=== PATIENT | female | born 1985 | race Caucasian/White ===

== ENCOUNTER 2019-04-25 20:01 | Emergency (ER) | payer SELFPAY ==
[~2019-04-25] VITALS: Ht 162.6 cm; Wt 63.0 kg
[2019-04-25 20:03] VITALS: BP 151/91; PULSE 72; RESP 18; Ht 162.6 cm; Wt 63.0 kg
[2019-04-25] MEDS ORDERED: METOCLOPRAMIDE 10 MG INJ IV STA (20:37)
[2019-04-25] MEDS ORDERED: SOD CHLORIDE 0.9% 1,000 ML IV STA (20:37)
[2019-04-25] MEDS ORDERED: METO10TA92 PO (21:25)
--- NOTE | 2019-04-25 21:28 | ERD ---
ER Documentation Chief Complaint Chief Complaint VOMITING X'S 4 DAYS HPI 34-year-old female presents with vomiting over the last 4 days. She is approximately 1 week or less with her menstrual periods although she did have 2 last month. She denies fevers, abdominal pain, vaginal bleeding. Denies urinary complaints. ROS All systems reviewed and are negative except as per history of present illness. Medications Home Meds Active Scripts Metoclopramide* (Reglan*) 10 Mg Tablet, 10 MG PO Q6 PRN for NAUSEA AND/OR VOMITING, #20 TAB Prov:NORBERT JARVIS MD 04/25/19 Allergies Allergies: Coded Allergies: No Known Allergies (Verified Allergy, Unknown, 12/25/07) PMhx/Soc Medical and Surgical Hx: pt denies Medical Hx, pt denies Surgical Hx History of Surgery: No Anesthesia Reaction: No Hx Neurological Disorder: No Hx Respiratory Disorders: No Hx Cardiac Disorders: No Hx Psychiatric Problems: No Hx Miscellaneous Medical Probl: No Hx Alcohol Use: No Hx Substance Use: No Hx Tobacco Use: No Smoking Status: Never smoker Physical Exam Vitals Vital Signs Date Temp Pulse Resp B/P (MAP) Pulse Ox O2 O2 Flow FiO2 Time Delivery Rate 04/25/19 97.6 72 18 151/91 100 20:03 (111) Physical Exam Const: No acute distress Head: Atraumatic Eyes: Normal Conjunctiva ENT: Normal External Ears, Nose and Mouth. Neck: Full range of motion. No meningismus. Resp: Clear to auscultation bilaterally Cardio: Regular rate and rhythm, no murmurs Abd: Soft, non tender, non distended. Normal bowel sounds Skin: No petechiae or rashes Back: No midline or flank tenderness Ext: No cyanosis, or edema Neur: Awake and alert Psych: Normal Mood and Affect Result Diagram: 04/25/19204604/25/192046 Results 24 hrs Laboratory Tests Test 04/25/19 20:47 White Blood Count 14.5 10^3/ul Red Blood Count 4.52 10^6/ul Hemoglobin 14.1 g/dl Hematocrit 41.3 % Mean Corpuscular Volume 91.4 fl Mean Corpuscular Hemoglobin 31.2 pg Mean Corpuscular Hemoglobin Concent 34.1 g/dl Red Cell Distribution Width 12.0 % Platelet Count 259 10^3/UL Mean Platelet Volume 10.7 fl Immature Granulocytes % 0.300 % Neutrophils % 67.6 % Lymphocytes % 23.5 % Monocytes % 8.0 % Eosinophils % 0.3 % Basophils % 0.3 % Nucleated Red Blood Cells % 0.0 /100WBC Immature Granulocytes # 0.040 10^3/ul Neutrophils # 9.8 10^3/ul Lymphocytes # 3.4 10^3/ul Monocytes # 1.2 10^3/ul Eosinophils # 0.1 10^3/ul Basophils # 0.1 10^3/ul Nucleated Red Blood Cells # 0.0 10^3/ul Sodium Level 137 mmol/L Potassium Level 3.5 mmol/L Chloride Level 102 mmol/L Carbon Dioxide Level 24 mmol/L Anion Gap 11 Blood Urea Nitrogen 13 mg/dl Creatinine 0.66 mg/dl Est Glomerular Filtrat Rate mL/min > 60 mL/min Glucose Level 94 mg/dl Calcium Level 9.9 mg/dl Total Bilirubin 0.6 mg/dl Direct Bilirubin 0.00 mg/dl Indirect Bilirubin 0.6 mg/dl Aspartate Amino Transf (AST/SGOT) 26 IU/L Alanine Aminotransferase (ALT/SGPT) 30 IU/L Alkaline Phosphatase 72 IU/L Total Protein 7.8 g/dl Albumin 4.5 g/dl Globulin 3.30 g/dl Albumin/Globulin Ratio 1.36 Lipase 95 U/L Serum HCG, Qualitative POSITIVE Current Medications Medications Dose Sig/Linette Start Time Status Last (Trade) Ordered Route PRN Stop Time Admin Dose Reason Admin Sodium 1,000 ml @ Q1H STAT 04/25/19 04/25/19 Chloride 1,000 mls/hr IV 20:37 04/25/19 20:41 21:36 10 mg ONCE STAT 04/25/19 DC 04/25/19 Metoclopramid IV 20:37 04/25/19 20:42 e HCl 20:38 (Reglan) Procedures/MDM CBC shows mild leukocytosis. CMP shows no evidence of dehydration. Urine shows no acute abnormalities. Serum hCG is positive. Patient was given 1 L normal saline IV, Reglan 10 mg IV and had resolution of vomiting and felt much better after observation treatment. She had a benign abdomen on serial exam. Patient presents with vomiting of early . She is now a G2 para 1. She has no abdominal pain to suggest ectopic , appendicitis, surgical abdomen currently. Ultrasound deferred given very early by dates and no pain. She will be treated with Reglan at home, and stretches for fluids, small frequent meals, OB follow-up as well as vitamins. The patient was stable with no new complaints during the ER course. Clinically, there is no cur rent evidence to suggest meningitis, sepsis, acute abdomen, pneumonia, stroke, acute coronary syndrome, pulmonary embolism, aortic dissection or any other emergent condition appearing to require further evaluation or hospitalization. Patient counseled regarding my diagnostic impression and care plan. Prior to discharge all questions answered. Pt agrees with treatment plan and understands strict return precautions. Pt is instructed to follow up with primary care provider within 24-48 hours. Precautionary instructions provided including instructions to return to the ER if not improving or for any worsening or changing symptoms or concerns. Disclaimer: Inadvertent spelling and grammatical errors are likely due to EHR/dictation software use and do not reflect on the overall quality of patient care. Also, please note that the electronic time recorded on this note does not necessarily reflect the actual time of the patient encounter. Departure Diagnosis: Primary Impression: Weeks of gestation: less than 8 weeks Qualified Codes: Z3A.01 - Less than 8 weeks gestation of Additional Impression: Acute vomiting Condition: Stable Patient Instructions: Hyperemesis Gravidarum, Vomiting (6Y-Adult) Referrals: [facility] [address] [facility] [address] [place], [place] [phone] [address] [address] [place] [place] [phone] [facility] [address] [place], [place] [phone] MARE [address]LIN [address] [facility] [phone] [address] [address] [place] [phone] [facility] [address] [place] [phone] [facility] [id number] [address] GONZALEZ, JOHN [address] [facility] [address] [address] BARRIOS, NAFISA [address] [facility], [facility] [address] [address] [facility] [address] [place], [place] [phone] Additional Instructions: See OB providers for further evaluation and treatment. Recheck for bleeding, pain, fevers, new worsening symptoms. Drink fluids at home. NORBERT JARVIS MD Apr 25, 2019 21:28
== END 2019-04-25 21:35 | disposition home or self-care (01) ==
LOC: FTE 20:01
DX: O21.9 Vomiting of pregnancy, unspecified (principal); Z3A.01 Less than 8 weeks gestation of pregnancy
CPT/HCPCS: 36415; 80053; 83690; 84703; 85025; 96361; 96374; 99285; J2765; J7030